=== PATIENT | male | born 2005 | race Caucasian/White ===

== ENCOUNTER 2025-08-16 15:19 | Emergency (ER) | payer SELFPAY ==
[2025-08-16 15:19] VITALS: BP 137/69; PULSE 104; RESP 16; TEMP 36.2; O2SAT 97; BMI 32.3
--- NOTE | 2025-08-16 15:53 | EX.ED.DYSGE1 ---
HPI History of Present Illness Chief Complaint: Neuro S/Sx Detail of Chief Complaint: Left side of face not working Informant: patient and spouse/S.O. Onset/Context/Timing Onset: Weeks (Significant other noted difference 1 week ago) Context: Sudden Onset Timing: Continuous Quality: Unable to move PERRL forehead, close eyes completely on the left and asymme Location: Left side Current Severity: Severe Maximum Severity: Severe Worsened by: Nothing Relieved by: Nothing Associated Symptoms Associated Symptoms: None Narrative Narrative: Patient is a 19-year-old male with no segment past medical history. Patient is in no distress. BMI is 32.3. /significant other noted that his smile was crooked on the left side. She has noted a difference since August 09. He is having difficulty closing his eyelids on the left and he has a significant asymmetric smile with difficulty swallowing/drinking liquids out of a glass. He has not been out camping or in the he recently. He denies any ear pain or lesions noted either in his ear. He denies sore throat. He denies neck pain or neck stiffness. He reports he has never had this happen to him before. Prior similar symptoms: No Recent Illness/Hospitalization: No PFSH PFSH Medical History no medical history no medical history Home Medications ?Medication ?Instructions ?Recorded ?Last Taken ?Type acyclovir 800 mg tablet 800 mg PO 5X/DAY #35 TABLETS 08/16/25 Unknown Rx erythromycin 5 mg/gram (0.5 %) eye 1 applic LEFT EYE .Q HS #3.5 grams 08/16/25 Unknown Rx ointment prednisone 50 mg tablet 50 mg PO DAILY #7 tabs 08/16/25 Unknown Rx Allergy/AdvReac Type Severity Reaction Status Date / Time No Known Allergies Allergy Verified 08/16/25 15:20 Surgical History no surgical history no surgical history Social History (Updated 08/16/25 @ 15:[address] Ollie Walker MD) household members: significant other and children ROS ROS ED Constitutional Constitutional ED: Denies chills, fever(s), subjective, sweats or weight loss Eyes Eyes: Denies blurry vision, change in vision or diplopia ENT ENT ED: Denies ear pain, rhinorrhea or sore throat Cardiovascular Cardiovascular: Denies chest pain or palpitations Respiratory/Chest Respiratory/Chest: Denies cough, dyspnea or dyspnea on exertion Gastrointestinal Gastrointestinal: Denies nausea or vomiting Neurologic Neurologic: Denies headache(s), paresthesias or weakness Psychiatric Psychiatric: Denies anxiety or depression Hematologic/Lymphatic Hematologic/Lymphatic: Reports systems reviewed and no addt'l complaints, except as documented EXAM Physical Exam Const Vital Signs: 08/16/25 15:19 Temperature 97.2 F L Temperature Source Temporal Pulse Rate 104 H Respiratory Rate 16 Blood Pressure 137/69 H Blood Pressure Mean 91 Pulse Ox 97 Oxygen Delivery Method Room Air Positive well nourished and well developed General Appearance ED: well developed and NAD; Negative for pallor HEENT Reports TM's clear and moist mucous membranes HEENT Narrative: Patient has asymmetric smile. He is unable to fill his forehead on the left and difficulty closing his eye Lids on the left completely. There are no lesions noted on the ear or external auditory canal. There is no discomfort pulling on the auricle or portion of the tragus. 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 There are no lesions noted on his ear or 2nd or 3rd distribution of the trigeminal nerve to suggest Pallavi Mckeon syndrome. With no history of camping or being out in the he there is no concern for Lyme's disease. Patient will receive prescription for prednisone and acyclovir as well as erythromycin ointment. He was informed that he has a 92 95% chance is may completely recover there is a 2 to 5% chance there is only partial recovery and only at 2 to 3% at this will be permanent. History & Record Review Discussion w/independent historian: Significant other Discharge Plan Triage Chief Complaint: Neuro S/Sx ED Provider: Ollie Walker Dx/Rx/DC Orders Clinical Impression: Left-sided Mcconnell's palsy, Elevated blood-pressure reading without diagnosis of hypertension, Adult BMI 32.0-32.9 kg/sq m Instructions: ED Mcconnell's Palsy, ED Hypertension, To Be Confirmed Prescriptions: New erythromycin 5 mg/gram (0.5 %) ointment 1 applic LEFT EYE .Q HS Qty: 3.5 2RF Rx Instructions: Then tape your eyelid shut acyclovir 800 mg tablet 800 mg PO 5X/DAY Qty: 35 0RF prednisone 50 mg tablet 50 mg PO DAILY Qty: 7 0RF Primary Care Provider: Care Physician,No Primary Referrals: Care Physician,No Primary [Primary Care Provider, Medical] [facility] [Non-Staff, Medical] - 1 Week Activity Restrictions/Additional Instructions: 1. Take medication as prescribed and apply ointment as prescribed. 2. You need to follow-up at the [facility] in 1 to 2 weeks to have your blood pressure reassessed. Your pressure is elevated for a 19-year-old. Print Language: Moroccan Disposition Disposition: Home, Self Care
--- OUTSIDE RECORDS SUMMARY | 2025-08-16 16:05 | XMS RPT_ITS | CCD ---
Author Organization [facility] CliniSyil Care Team Providers Care Mosquito Sprayer Name Role Phone Jessica Mack CNP Primary Care Provider JESSICA MACK Primary Care Unavailable CANDIE CEJA Referring Unavailable JESSICA MACK Primary Care Unavailable Earl GARZA, Dustin Attending Unavailable Winter ÁLVAREZ, Stan Hooks Attending Unavailable Earl GARZA, Dustin Attending Unavailable Earl GARZA, Dustin Attending Unavailable LISBETH MAURER MD Attending Unavailable LISBETH MAURER MD Primary Care Unavailable LISBETH MAURER MD Admitting Unavailable MILO SANTIAGO DO Attending Unavailable CSEMILO TSE DO Primary Care Unavailable CSEMILO TSE DO Admitting Unavailable KARYN GAN DO Admitting Unavailable DIDKARYN DOBBINS DO Attending Unavailable KARYN GAN DO Primary Care Unavailable JOSE HUI Attending Unavailable JOSE HUI Primary Care Unavailable JOSE HUI Admitting Unavailable Medications Current Medications Medication Drug Class(es) Dates Sig (Normalized) Sig (Original) cetirizine hydrochloride 10 mg oral tablet (5 sources) Histamine-1 Receptor Antagonist Start: 11-21-2020 take 1 tablet by mouth once daily cetirizine (ZYRTEC) 10 mg tablet Take 1 tablet by mouth once daily. 11/21/2020 Active fluticasone propionate 0.05 mg/actuat metered dose nasal spray (5 sources) Corticosteroid Start: 11-27-2020 take 1 spray(s) nasal route once daily at bedtime fluticasone (FLONASE) 50 mcg/actuation nasal spray Use 1 [place] in each nostril daily at bedtime. 1 Bottle 11/27/2020 Active hydrOXYzine hydrochloride 25 mg oral tablet (5 sources) Antihistamine Start: 11-21-2020 take 1 tablet by mouth once daily at bedtime hydrOXYzine HCl (ATARAX) 25 mg tablet Take 1 tablet by mouth daily at bedtime. 11/21/2020 Active melatonin 5 mg oral capsule (5 sources) Start: 11-21-2020 take 1 capsule by mouth once daily at bedtime Melatonin 5 mg cap Take 1 capsule by mouth daily at bedtime. 11/21/2020 Active naproxen 500 mg oral tablet (2 sources) Nonsteroidal Anti-inflammatory Drug Start: 01-18-2024 End: 01-25-2024 take 1 tablet by mouth every twelve hours as needed naproxen (NAPROSYN) 500 mg tablet Take 1 tablet by mouth two times a day as needed (for pain/inflammation ) for up to 7 days. Take with food. 14 tablet 0 01/18/2024 01/25/2024 Active topiramate 25 mg oral tablet (3 sources) Start: 11-27-2020 take 1 tablet by mouth once daily topiramate (TOPAMAX) 25 mg tablet Take 1 tablet by mouth once daily. 30 tablet 11/27/2020 Active Problems Problem Classification Problem Date Documented Da te Episodic/Chronic Other lower respiratory disease (1 source) Other specified respiratory disorders; Translations: [Other specified respiratory disorders] Onset: 07-10-2024 Episodic Other non-traumatic joint disorders (3 sources) Pain in right shoulder; Translations: [Pain in joint, shoulder region] Onset: 01-18-2024 01-18-2024 Episodic Results Test Name Value Interpretation Reference Range Facil ity ED MED ADMINISTRATION DETAIL on 02-18-2025 ED MED ADMINISTRATION DETAIL Detention Worker Medication Administration Record [address] [address] [id number] 02/18/2025 Patient: ANTELMO HE Sex: Male : 2005 Age: 19y MEASUREMENTS: Wt: 113.4 kg, Ht/Brenton: 74.0 in, BMI: 32.10 ALLERGIES: No known drug allergies Medication Ordered Medication Administration Date/Time Kenalog IM 40 mg 12:17 02/18 Kenalog IM 40 mg given. Given in the left gluteus Given (NOW x1) ganga. Allergies verified and confirmed 5 rights. Information 12:17 02/18/2025 reviewed with patient including reason for taking this medication, Joseline Amanda R.N. signs of allergic reaction and precautions. Verbalizes Scanned understanding. - 12:19 Joseline Amanda R.N. 1 of 1 Normal [facility] ED NURSES CLINICAL NOTEon ED NURSES CLINICAL NOTE Nurse Narrative Nurse Clinical Narrative [facility] [address] [place] [address] [id number] 02/18/2025 12:02:00 Patient: ANTELMO HE Sex: Male : 2005 Age: 19y Disposition: Discharge Disposition Decision Time: 12:28 02/18/2025 Departure Time: 12:43 02/18/2025 TRIAGE Arrived by private vehicle. Historian: (patient). Primary physician (None). Triage time: 12:01 02/18/2025. Acuity: LEVEL 4. Chief Complaint: SKIN RASH and . poison iron. Location - right groin, right thigh, left forearm and left wrist. This started yesterday. It is described as itchy. SEPSIS SCREEN: NEGATIVE. SIRS criteria negative. No possible sources of infection. -- 12:02/18/25 EDT Kristie Merchant R.N. 12:02/18/25. BP: 127/58 MAP: 81. HR: 80. RR: 14. O2 saturation: 97% Temperature: 97.5 F. Pain level now 0/10. -- 12:02/18/25 AGUSTINAT Kristie Merchant R.N. Measurements: 12:02/18/25 Wt: 113.4 kg, Ht/Brenton: 74.0 in, BMI: 32.10 -- 12:02/18/25 EDT Kristie Merchant R.N. Medications: no known home medications -- 12:02/18/25 AGUSTINAT Kristie Merchant R.N. 12:02/18/25. Preferred Pharmacy: ([facility]). -- 12:02/18/25 EDT Kritsie Merchant R.N. 1 of 3 Nurse Narrative Allergies: no known drug allergies -- 12:02/18/25 AGUSTINAT Kristie Merchant R.N. Home Medications/Allergy Information Source: patient -- 12:02/18/25 EDT Kristie Merchant R.N. Problems: Asthma -- 12:02/18/25 AGUSTINAT Kristie Merchant R.N. history of meningitis -- 12:02/18/25 AGUSTINAT Kristie Merchant R.N. Surgeries: Hernia Repair -- 12:02/18/25 EDT Kristie Merchant R.N. History 12:02/18/25. PAST MEDICAL HX: Immunizations: up-to-date. SOCIAL HX: Occasional vaping. No alcohol use or drug use. The patient has not traveled outside the [place] Infectious disease exposure: No infectious disease exposure. ABUSE ASSESSMENT: The patient answered yes to the question(s) Do you feel safe in your home? and no to the question(s) Are you afraid to go home?. Abuse denied. No suspicion of abuse. SELF HARM ASSESSMENT: Self harm assessment was performed. The patient answered no to the question(s) Have you recently felt down, depressed, or hopeless? and Do you have thoughts of harming or killing yourself?. FALL RISK ASSESSMENT: Fall risk assessment completed. No risk factors identified. -- 12:02/18/25 EDT Kristie Merchant R.N. Interventions 2 of 3 Nurse Narrative 12:02/18/25. Advanced care plan discussed with patient (Full Code). -- 12:02/18/25 EDT Kristie Merchant R.N. PHYSICAL ASSESSMENT 12:14 02/18/25. ( Presents to ER for c/o pruritus and rash since yesterday.). GENERAL / NEURO / PSYCH: Alert. The patient does not appear to be in acute distress. Oriented X 4. HEENT: Pupils equal, round and reactive to light. Mucous membranes are pink. RESPIRATORY: Respirations not labored. Breath sounds within normal limits. CVS: Capillary refill less than 2 seconds. Pulses within normal limits. GI / : Abdomen nontender. SKIN: Skin is warm and dry. Raised skin rash in the left groin, on the right arm, left arm and left thigh. -- 12:24 02/18/25 EDT Joseline Amanda R.N. NURSING PROGRESS NOTES 12:02/18/25. Patient identifiers checked. Call light placed in reach. Side rails up x 1. Bed placed in lowest position. Brakes of bed on. -- 12:20 02/18/25 EDT Joseline Amanda R.N. 12:17 02/18/25. Kenalog IM 40 mg given. Given in the left gluteus ganga. Allergies verified and confirmed 5 rights. Information reviewed with patient including reason for taking this medication, signs of allergic reaction and precautions. Verbalizes understanding. -- 12:19 02/18/25 EDT Joseline Amanda R.N. 12:28 02/18/25. ( Patient monitored after Kenalog injection and will discharge after). -- 12:49 02/18/25 EDT Joseline Amanda R.N. DISPOSITION / DISCHARGE 12:42 02/18/25. BP: 123/64 MAP: 84. HR: 63. RR: 16. O2 saturation: 99% Temperature: 98.1 F. Pain level now 0/10. -- 12:42 02/18/25 EDT Joseline Amanda R.N. 12:43 02/18/25. Discharge instructions provided and reviewed with the patient. Patient verbalized understanding. Written instructions provided in Greek. The patient was discharged by the physician. The patient was discharged home. The patient left ambulatory and via private vehicle. Patient driving. -- 12:45 02/18/25 EDT Joseline Amanda R.N. Departure time: 12:43 02/18/2025. -- 12:46 02/18/25 EDT Joseline Amanda R.N. 12:43 02/18/25. Condition at departure: improved and stable. -- 12:50 02/18/25 EDT Joseline Amanda R.N. (Electronically signed by Joseline Amanda R.N. 02/18/25 12:50:30 EDT) Generated by [facility] 3 of 3 Normal [facility] ED ORDER SHEET (CPOE ONLY)on 02-18-2025 ED ORDER SHEET (CPOE ONLY) Order Sheet Order Sheet [facility] [address] [facility] [place] [address] [id number] 02/18/2025 Patient: ANTELMO HE Sex: Male : 2005 Age: 19y MEASUREMENTS: Wt: 113.4 kg, Ht/Brenton: 74.0 in, BMI: 32.10 ALLERGIES: No known drug allergies MEDICATION/IV/DRIP/FL UID ORDERS Order Description Priority Entered Acknowledged Completed Kenalog IM40 mg (NOW x1) 12:12 02/18/2025 12:19 Jose Hui M.D. 02/18/2025 Joseline Amanda R.N. LAB ORDERS Order Description Priority Entered Acknowledged Collected Completed DIAGNOSTIC STUDY ORDERS Order Description Priority Entered Acknowledged Completed STAFF ORDERS Order Description Priority Entered Acknowledged Collected Completed [Electronically signed by Jose Hui M.D. (02/18/2025 12:44 EDT)] 1 of 1 Normal [facility] ED PHYSICIAN CLINICAL REPORT on 02-18-2025 ED PHYSICIAN CLINICAL REPORT Narrative Physician Clinical [address] [address] [id number] 02/18/2025 12:02:00 Patient: ANTELMO HE Sex: Male : 2005 Age: 19y Measurements Wt: 113.4 kg, Ht/Brenton: 74.0 in, BMI: 32.10 Initial Vital Sign Measured Time BP MAP HR RR O2Sat ETCO2 Temp Pain GCS RTS 12:06 02/18/2025 127/58 81 80 14 97% 97.5 F 0 Time Seen: 12:07 02/18/2025. Arrived- By private vehicle. Historian- patient. HISTORY OF PRESENT ILLNESS Chief Complaint: SKIN RASH. This started about 2 years days ago. It is described as itchy. It has been located on the trunk, right lower extremity and left lower extremity. The patient was recently exposed to poison iron. 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 States every summer he gets poison iron and couple of days ago started with patches of a itchy rash to his arms legs and groin area. No other complaints.). Similar symptoms previously. Patient has had similar symptoms several times. REVIEW OF SYSTEMS All other systems reviewed and are negative. PAST HISTORY See nurses notes. 1 of 3 Narrative Asthma history of meningitis Surgeries: Hernia Repair Medications: no known home medications Allergies: no known drug allergies Home Medications/Allergy Information Source: patient - Kristie Merchant R.N., 02/18/2025 12:04 EDT ADDITIONAL NOTES The nursing notes have been reviewed. PHYSICAL EXAM Vital Signs: Have been reviewed. Appearance: Alert. Oriented X3. No acute distress. Eyes: No conjunctival findings. Respiratory: No respiratory distress. Skin: Skin warm and dry. Normal skin color. Rash present on the trunk. Rash present on the right lower extremity. The rash is vesicular. Rash present on the left upper extremity. (Patches a fine vesicular rash as mentioned consistent with contact dermatitis such as poison iron). Neuro: Oriented X 3. PROGRESS AND PROCEDURES MEDICAL DECISION MAKING: The diagnosis appears to be straight forward. (exam consistent with contact dermatitis secondary to poison iron.). Disposition: Condition: good. Discharged in good condition. Discharge decision based on the following: patient's condition is stable; patient's exam is stable; clinical impression is consistent with outpatient treatment. 2 of 3 Narrative CLINICAL IMPRESSION Moderate poison iron DISCHARGE INSTRUCTIONS Off work today. Prescription Medications: Triamcinolone cream 0.5%. Follow-up: Follow up with your doctor in about three days if not better. (Electronically signed by Jose Hui M.D. 02/18/25 12:44:04 EDT) Generated by [facility] 3 of 3 [facility] ED SUPER BILLon 02-18-[address] [place] [address] [id number] 02/18/2025 Patient: ANTELMO HE Sex: Male : 2005 Age: 19y Item Facility Professional Category Description Code Code Quantity Fee Total Nurse/E/M EMERGENCY 347457 1 $0.00 $0.00 DEPARTMENT VISIT HIGH/URGENT SEVERITY (20181-76) Nurse/IV/IM/Infusions IM/SQ (97586) 049491 1 $0.00 $0.00 Grand Total $0.00 Providers Jose Hui M.D. Chief Complaint SKIN RASH. Principal Diagnosis Moderate poison iron 1 of 2 [facility] ICD-10 Codes L25.5: Unspecified contact dermatitis due to plants, except food 2 of 2 [facility] ED VISIT SUMMARYon 06-30-202 5 ED VISIT SUMMARY Visit Overview Visit Overview [facility] [address] [place] [address] [id number] 02/18/2025 Patient: ANTELMO HE Sex: Male : 2005 Age: 19y 02/18/2025 12:50 PM EDT ED Arrival:12:02 02/18/2025 EDT Status: Recent Travel:no Language:eng Adv Directive: Isolation Status: Ethnicity:N Fall Risk:no risk Infectious Disease Exposure:no Measurements:6'2 / 188.0 Self-Harm Status:risk Sepsis Screen:negative cm 250.0 lb / 113.4 kg Chief Complaint:SKIN RASH, (None), and (poison iron ) ALLERGIES No Known Drug Allergies HOME MEDICATIONS None PAST MEDICAL HISTORY / PROBLEMS Asthma history of meningitis Immunizations: up-to-date 1 of 3 Visit Overview See nurses notes PAST SURGICAL HISTORY Hernia Repair SOCIAL HISTORY Smoking status: Unknown Alcohol use: No Drug use: No ED COURSE MEDICATIONS GIVEN IN EMERGENCY DEPARTMENT 12:17 02/18/25 Kenalog IM 40 mg IV SITE INFORMATION INTAKE OUTPUT REASSESMENT (most recent) 12:14 02/18/25. ( Presents to ER for c/o pruritus and rash since yesterday.). GENERAL / NEURO / PSYCH: Alert. The patient does not appear to be in acute distress. Oriented X 4. HEENT: Pupils equal, round and reactive to light. Mucous membranes are pink. RESPIRATORY: Respirations not labored. Breath sounds within normal limits. CVS: Capillary refill less than 2 seconds. Pulses within normal limits. GI / : Abdomen nontender. SKIN: Skin is warm and dry. Raised skin rash in the left groin, on the right arm, left arm and left thigh. VITAL SIGNS First Vitals Last Vitals Temp 12:02/18/25 97.5 F Temp 12:02/18/25 98.1 F BP 12:02/18/25 127/58 BP 12:02/18/25 123/64 HR 12:02/18/25 80 HR 12:02/18/25 63 RR 12:02/18/25 14 RR 12:02/18/25 16 O2 Sat 12:02/18/25 97% O2 Sat 12:42 02/18/25 99% 2 of 3 Visit Overview First Vitals Last Vitals Pain 12:06 02/18/25 0 Pain 12:42 02/18/25 0 ETCO2 12:06 02/18/25 ETCO2 12:42 02/18/25 GCS 12:06 02/18/25 GCS 12:42 02/18/25 RTS 12:06 02/18/25 RTS 12:42 02/18/25 PROCEDURES NURSING INTERVENTIONS LABS / STUDIES CLINICAL IMPRESSION MODERATE POISON IRON 3 of 3 [facility] ED VITALS FLOW SHEETon 02-18 ED VITALS FLOW SHEET Vitals Vital Sign Flow Sheet [address] [address] [id number] 02/18/2025 Patient: ANTELMO HE Sex: Male : 2005 Age: 19y Measurements Wt: 113.4 kg, Ht/Brenton: 74.0 in, BMI: 32.10 Measured Time BP MAP HR RR O2Sat ETCO2 Temp Pain GCS RTS 12:42 02/18/2025 123/64 84 63 16 99% 98.1 F 0 12:06 02/18/2025 127/58 81 80 14 97% 97.5 F 0 1 of 1 [facility] ED MED ADMINISTRATION DETAIL on 07-12-2024 ED MED ADMINISTRATION DETAIL Detention Worker Medication Administration Record [address] [address] [id number] 07/12/2024 Patient: ANTELMO HE Sex: Male : 2005 Age: 18y MEASUREMENTS: Wt: 111.6 kg, Ht/Brenton: 74.0 in, BMI: 31.58 ALLERGIES: No known drug allergies Medication Ordered Medication Administration Date/Time 1 of 1 [facility] ED NURSES CLINICAL NOTEon ED NURSES CLINICAL NOTE Nurse Narrative Nurse Clinical Narrative [address] [address] [id number] 07/12/2024 Patient: ANTELMO HE Sex: Male : 2005 Age: 18y Disposition: Discharge Disposition Decision Time: 09:07 07/12/2024 Departure Time: 09:07 07/12/2024 TRIAGE Arrived by private vehicle. Historian: patient. Triage time: 08:30 07/12/2024. Acuity: LEVEL 3. Chief Complaint: CHILLS, CHEST PAIN, DYSPNEA, COUGH and NAUSEA. Alert. No acute distress. Onset. (2 weeks ago). ( diagnosed with flu on Tuesday. Pain with cough started yesterday). The patient has had a cough. SEPSIS SCREEN: NEGATIVE. SIRS criteria negative. No possible sources of infection. -- 08:48 07/12/24 CARRIE Luke R.N. 08:49 07/12/24. BP: 130/98 MAP: 109. HR: 75. RR: 18. O2 saturation: 95% on room air. Temperature: 98.1 F. Pain level now 7/10. Describes the pain as aching. -- 08:49 07/12/24 CARRIE Luke R.N. Measurements: 08:48 07/12/24 Wt: 111.6 kg, Ht/Brenton: 74.0 in, BMI: 31.58 -- 08:48 07/12/24 CARRIE Luke R.N. Medications: no known home medications -- 08:43 07/12/24 CARRIE Luke R.N. 1 of 3 Nurse Narrative Allergies: no known drug allergies -- 08:42 07/12/24 CARRIE Luke R.N. Problems: Asthma -- 08:44 07/12/24 CARRIE Luke R.N. ADDITIONAL SURGERIES: no known surgical history -- 08:43 07/12/24 CARRIE Luke R.N. History 08:30 07/12/24. SOCIAL HX: Heavy tobacco smoker. Regular vaping. No alcohol use or drug use. The patient has not traveled outside the [place] Infectious disease exposure: No infectious disease exposure. ABUSE ASSESSMENT: The patient answered yes to the question(s) Do you feel safe in your home? and no to the question(s) Are you afraid to go home?. SELF HARM ASSESSMENT: Self harm assessment was performed. The patient answered no to the question(s) Have you recently felt down, depressed, or hopeless? and Do you have thoughts of harming or killing yourself?. -- 08:48 07/12/24 CARRIE Luke R.N. 08:33 07/12/24. FALL RISK ASSESSMENT: Fall risk assessment completed. No risk factors identified. -- 08:48 07/12/24 CARRIE Luke R.N. Interventions 08:30 07/12/24. Identification band on patient. Advanced care plan discussed with patient. Patient does not have advanced directive. (Full Code). -- 08:48 07/12/24 CARRIE Luke R.N. PHYSICAL ASSESSMENT 2 of 3 Nurse Narrative 08:51 07/12/24. Ambulatory to room. ( complains of cough and chest pain s/p positive flu test on tuesday). GENERAL / NEURO / PSYCH: Alert. Oriented X 4. Appears in no acute distress. HEENT: Mucous membranes are pink. RESPIRATORY: Respirations not labored. Breath sounds within normal limits. CVS: Capillary refill less than 2 seconds. SKIN: Skin is warm and dry. -- 09:06 07/12/24 CARRIE Diggs R.N. DISPOSITION / DISCHARGE Departure time: 09:07/12/2024. Condition at departure: unchanged. No learning barriers present. Discharge instructions provided and reviewed with the patient. Patient verbalized understanding. Written instructions provided in Greek. The patient was discharged by the physician. The patient was discharged home. The patient left ambulatory and via private vehicle. Patient driving. -- 09:07 07/12/24 CARRIE Diggs R.N. (Electronically signed by Holden Diggs R.N. 07/12/24 09:58:17 EST) Generated by [facility] 3 of 3 Normal [facility] ED ORDER SHEET (CPOE ONLY)on 07-12-2024 ED ORDER SHEET (CPOE ONLY) Order Sheet Order Sheet [facility] [address] [facility] [place] [address] [id number] 07/12/2024 Patient: ANTELMO HE Sex: Male : 2005 Age: 18y MEASUREMENTS: Wt: 111.6 kg, Ht/Brenton: 74.0 in, BMI: 31.58 ALLERGIES: No known drug allergies MEDICATION/IV/DRIP/FL UID ORDERS Order Description Priority Entered Acknowledged Completed LAB ORDERS Order Description Priority Entered Acknowledged Collected Completed DIAGNOSTIC STUDY ORDERS Order Description Priority Entered Acknowledged Completed STAFF ORDERS Order Description Priority Entered Acknowledged Collected Completed 1 of 1 Normal [facility] ED PHYSICIAN CLINICAL REPORT on 07-12-2024 ED PHYSICIAN CLINICAL REPORT Narrative Physician Clinical Narrative [place] [id number] [facility] [place] [address] [id number] 07/12/2024 Patient: ANTELMO HE Sex: Male : 2005 Age: 18y Measurements Wt: 111.6 kg, Ht/Brenton: 74.0 in, BMI: 31.58 Initial Vital Sign Measured Time BP MAP HR RR O2Sat ETCO2 Temp Pain GCS RTS 08:46 07/12/2024 130/98 102 64 Time Seen: 08:38 07/12/2024. Arrived- By private vehicle. Historian- patient. HISTORY OF PRESENT ILLNESS Chief Complaint: COUGH. This started 4 days; Patient states he started having congestion and cough 4 days ago. It now is painful when he coughs in his chest. Occasionally he brings up some mucus. He has not had a fever. He is concerned because he has a 5-day-old baby at home. 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 He can not really tell me about the sputum. He states it does not really come up but he feels it loose in his throat. He has not had a fever. He denies any abdominal pain. He denies any nausea or vomiting. The illness is described as mild. No difficulty breathing, fever or chills. The patient has had chest discomfort, a sore throat, nasal congestion, sinus drainage and a nasal discharge. REVIEW OF SYSTEMS NEUROLOGICAL: No headache. EYES: No eye discomfort. GI: No nausea or vomiting. CVS: No pedal edema. ALLERGY/IMMUNO: No hay fever. 1 of 4 Narrative PAST HISTORY See nurses notes. Asthma Surgeries: no known surgical history Medications: no known home medications Allergies: no known drug allergies SOCIAL HISTORY Vapes. ADDITIONAL NOTES The nursing notes have been reviewed. PHYSICAL EXAM Vital Signs: Have been reviewed. Appearance: No acute distress. Eyes: Pupils equal, round and reactive to light. Eyes normal inspection. ENT: Nasal discharge present (clear rhinorrhea). Pharyngeal erythema (mild postnasal drip). Uvula midline. No tonsillar exudate, trismus or trouble handling secretions. Neck: Normal inspection. Neck supple. CVS: Normal heart rate. Heart sounds normal. Pulses normal. Respiratory: No respiratory distress. Painless inspiration. Breath sounds normal. No decreased breath sounds, rhonchi or wheezes. Skin: Skin warm. Normal skin color. No rash. Neuro: Oriented X 3. No motor deficit. No sensory deficit. Reflexes normal. 2 of 4 Narrative PROGRESS AND PROCEDURES COORDINATION OF CARE: (patient has typical upper respiratory symptoms most likely viral. He does not appear ill. He is not hypoxic. Has clear lungs. I feel he can be treated conservatively. I do not feel imaging is necessary at this time. I see no signs or symptoms of pneumonia. I feel this most likely is a viral origin and will be treated with symptomatic medications.). Disposition: Condition: good. Discharged in good condition. Discharge decision based on the following: patient's condition is stable; clinical impression is consistent with outpatient treatment. CLINICAL IMPRESSION Viral bronchitis. Antibiotics not prescribed / dispensed. Acute viral upper respiratory infection. Antibiotics not prescribed. DISCHARGE INSTRUCTIONS Take Tylenol (Acetaminophen) or Motrin (Ibuprofen) as needed for fever control. Take medication according to label instructions. No strenuous activity. Do not smoke. (or vaping). (Medications as directed. wash hands frequently.). Prescription Medications: Medications prescribed: Bromfed DM, albuterol inhaler. Bromfed DM 2 mg-30 mg-10 mg/5 mL oral syrup: Take 5 ml by mouth four times a day for 7 days, dispense 140 ml. Refills 0. Pharmacy: [facility] [id number] [place] [address]. albuterol sulfate HFA 90 mcg/actuation aerosol inhaler: Inhale 2 puff using inhaler every six hours as needed for 10 days, dispense 6.7 gram. Refills 0. Pharmacy: [facility] [id number] [place] [address]. Understanding of the discharge instructions verbalized by patient. 3 of 4 Narrative (Electronically signed by Lisbeth Maurer M.D. 07/12/24 09:00:37 EST) Generated by [facility] 4 of 4 [facility] ED SUPER BILLon 07-12-2024 ED SUPER BILL [address] [address] [id number] 07/12/2024 Patient: ANTELMO HE Sex: Male : 2005 Age: 18y Item Professional Category Description Facility Code Code Quantity Fee Total Nurse/E/M EMERGENCY 192495 1 $0.00 $0.00 DEPARTMENT VISIT LIMITED/MINOR PROB (36112) Grand Total $0.00 Providers Lisbeth Maurer M.D. Chief Complaint COUGH. Principal Diagnosis Viral bronchitis. Antibiotics not prescribed / dispensed. Acute viral upper respiratory infection. Antibiotics not prescribed. ICD-10 Codes 1 of 2 [facility] J20.8: Acute bronchitis due to other specified organisms J06.9: Acute upper respiratory infection, unspecified 2 of 2 [facility] ED VISIT SUMMARYon ED VISIT SUMMARY Visit Overview Visit Overview [address] [address] [id number] 07/12/2024 Patient: ANTELMO HE Sex: Male : 2005 Age: 18y 07/12/2024 09:58 AM EST ED Arrival:08:36 07/12/2024 EST Status: Recent Travel:no Language:eng Adv Directive:No Isolation Status: Ethnicity:N Fall Risk:no risk Infectious Disease Exposure:no Measurements:6'2 / 188.0 Self-Harm Status:risk Sepsis Screen:negative cm 246.0 lb / 111.6 kg Chief Complaint:CHEST PAIN, CHILLS, COUGH, DYSPNEA, NAUSEA, (2 weeks ago), and (diagnosed with flu on Tuesday. Pain with cough started yesterday) ALLERGIES No Known Drug Allergies HOME MEDICATIONS None PAST MEDICAL HISTORY / PROBLEMS 1 of 3 Visit Overview Asthma See nurses notes PAST SURGICAL HISTORY No Surgeries SOCIAL HISTORY Smoking status: Yes Alcohol use: No Drug use: No ED COURSE MEDICATIONS GIVEN IN EMERGENCY DEPARTMENT IV SITE INFORMATION INTAKE OUTPUT REASSESMENT (most recent) 08:51 07/12/24. Ambulatory to room. ( complains of cough and chest pain s/p positive flu test on tuesday). GENERAL / NEURO / PSYCH: Alert. Oriented X 4. Appears in no acute distress. HEENT: Mucous membranes are pink. RESPIRATORY: Respirations not labored. Breath sounds within normal limits. CVS: Capillary refill less than 2 seconds. SKIN: Skin is warm and dry. VITAL SIGNS First Vitals Last Vitals Temp 08:46 07/12/24 Temp 09:01 07/12/24 BP 08:46 07/12/24 130/98 BP 09:01 07/12/24 125/73 HR 08:46 07/12/24 64 HR 09:01 07/12/24 71 RR 08:46 07/12/24 RR 09:01 07/12/24 O2 Sat 08:46 07/12/24 O2 Sat 09:01 07/12/24 Pain 08:46 07/12/24 Pain 09:01 07/12/24 ETCO2 08:46 07/12/24 ETCO2 09:01 07/12/24 2 of 3 Visit Overview First Vitals Last Vitals GCS 08:46 07/12/24 GCS 09:01 07/12/24 RTS 08:46 07/12/24 RTS 09:01 07/12/24 PROCEDURES NURSING INTERVENTIONS LABS / STUDIES CLINICAL IMPRESSION ACUTE VIRAL UPPER RESPIRATORY INFECTION. ANTIBIOTICS NOT PRESCRIBED VIRAL BRONCHITIS. ANTIBIOTICS NOT PRESCRIBED / DISPENSED 3 of 3 Normal [facility] ED VITALS FLOW SHEETon 07-12 ED VITALS FLOW SHEET Vitals Vital Sign Flow Sheet [address] [place] [address] [id number] 07/12/2024 Patient: ANTELMO HE Sex: Male : 2005 Age: 18y Measurements Wt: 111.6 kg, Ht/Brenton: 74.0 in, BMI: 31.58 Measured Time BP MAP HR RR O2Sat ETCO2 Temp Pain GCS RTS 09:01 07/12/2024 125/73 91 71 08:59 07/12/2024 71 97% 08:54 07/12/2024 66 97% 08:49 07/12/2024 72 96% 08:49 07/12/2024 130/98 109 75 18 95% RA 98.1 F 7 08:46 07/12/2024 130/98 102 64 1 of 1 Normal [facility] Office Visit Reporton 2023 Office Visit Report [facility] [address] [place] [address] OFFICE VISIT Date of Service: 07/10/24 MR#: [id number] Acct: [id number] Patient: ANTELMO HE Rep #: [id number] : 2005 Provider: GREG Haro Age/Sex: 18/M Location: [facility] Status: Signed Intake Vital Signs 01/11/24 08:09 07/10/24 10:45 Height 1.88 m 1.88 m Weight: 101.151 kg 111.584 kg BMI 28.6 31.6 BP 123/78 133/89 H Blood Pressure Location Lt brachial Lt brachial Position Sitting Sitting Respiration 12 Pulse 66 94 Pulse Source NIBP Monitor Temp 98.7 F 98.3 F Temp Source Temporal Temporal Pulse Oximetry (%) 97 Intake Visit Reasons: Sore throat Chief Complaint: cough Allergies No Known Allergies Allergy (Unverified 07/10/24 10:46) HPI HPI Chief Complaint: cough Details: ANTELMO HE, is a 18 M who presents to the office today for cough. Pt has had cough about 2 weeks. He has also had sore throat and diarrhea about 2 days. No fever. No SOB. He was exposed to several sick friends one of which has rsv. He is concerned as he has an infant at home. ROS Const Constitutional: No chills, fatigue or fever(s) ENT ENT: Positive for nasal congestion and sore throat; No ear or mastoid pain Resp Respiratory: Positive for cough; No shortness of breath or wheezing Gastro GI: Positive for diarrhea; No nausea/dyspepsia or vomiting Endo Endocrine: No fatigue Aller/Imm Allergy/Immunologic: No wheezing Exam Const General: cooperative, healthy appearing, comfortable, no acute distress, well developed and well groomed Nutritional Appearance: average body habitus and well nourished Orientation: alert, awake and oriented x3 HENMT Head: normocephalic and atraumatic Ears: hearing grossly normal bilaterally, external ears normal and TM's normal bilaterally Nose: external nose normal and nares normal Throat: abnormal tonsil (2+ no exudates) Resp Effort Inspection: normal respiratory effort, able to speak in complete sentences, symmetric chest movement and cough Auscultation: Bilateral: Clear to Auscultation Cardio Rate: regular rate Rhythm: regular rhythm Heart Sounds: no murmurs Results POC RAPID RSV POC RAPID RSV Negative Last Edit by Nanette Daniel on 07/10/24 11:03 POC JOSHUA CoV-2 PCR POC JOSHUA CoV-2 PCR Not Detected Last Edit by Nanette Daniel on 07/10/24 11:04 POC FLU A B Office Flu A B Pos FLU A Neg FLU B Last Edit by Nanette Daniel on 07/10/24 11:04 Coding Level of Care Code Off vis,est,level 2 Diagnoses Sore throat J02.9 Influenza A J10.1 Assessment and Plan Assessment and Plan (1) Sore throat: (2) Influenza A: Status: Acute Plan: rapid test for flu a is positive. flu b, covid, and rsv are negative. at this time supportive measures only - hydrate, rest, motrin prn, mucinex dm prn. if no improvement 1 week follow up for re-eval. if worsening go to the ER no chronic medical issues/medication use Orders: Orders POC FLU A B Today J98.8 - Other specified respiratory disorders POC Rapid JOSHUA Cov-2 PCR Today J98.8 - Other specified respiratory disorders POC Rapid RSV ([place]) Today J98.8 - Other specified respiratory disorders 07/10/24 1106 Date Dustin Ignacio Signature: Date (if applicable) CC: Normal [facility] HAND LT MIN [address] [facility] 2023 HAND LT MIN 3 VIEWS [place] [id number] Patient: ANTELMO HE. Phone#: : 2005 Age: 18 Gender: M Pt. Type: ER Account: [id number] Location: [facility] Ordering: KARYN GAN Exam Date: 05/02/2024/0:48 Family Phys: Charge Code: [id number] Physician: Emmet Order #: [id number] Dose#: PROCEDURE: X-RAY HAND LT COMPLETE 3 VIEWS COMPARISON: None. INDICATIONS: TRAUMA. FINDINGS: BONES: Normal. No significant arthropathy or acute abnormality. SOFT TISSUES: Negative. No visible soft tissue swelling. EFFUSION: None visible. OTHER: Negative. CONCLUSION: No acute disease. Dictated by: Di Bernabe MD on 05/02/2024 at 10:12 Approved by: Di Bernabe MD on 05/02/2024 at 10:[address] [facility] 02-09-2024 [facility] Telephone (RGWSTR) ANTELMO HE ([id number]) 5 M Date Time Provider Department 02/09/24 SANDHYA MORILLO [facility] During your visit today, we recorded the following information about you: Pedrito Feliciano 02/09/2024 3:17 PM Signed Patient's spouse called to request disc and report of XR Shoulder RT from 01/18/24. Please notify spouse when ready for pickup. 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 - topiramate (TOPAMAX) 25 mg tablet Take 1 tablet by mouth once daily. - cetirizine (ZYRTEC) 10 mg tablet Take 1 tablet by mouth once daily. - hydrOXYzine HCl (ATARAX) 25 mg tablet Take 1 tablet by mouth daily at bedtime. - Melatonin 5 mg cap Take 1 capsule by mouth daily at bedtime. Problem List As Of Date: 02/09/2024 (None) Encounter Status:Closed by PEDRITO FELICIANO [facility] Tele[facility] ([facility]) ANTELMO HE ([id number]) 5 M Date Time Provider Department 01/19/24 CANDIE CEJA [facility] During your visit today, we recorded the following information about you: Jolanta Rosa RN 01/19/2024 8:24 AM Signed Patient calls and states that provider had wrote a letter yesterday to excuse patient from work yesterday. Patient states that he did not work yesterday. Patient asking if provider can write him a letter excusing him from work today? Please review and advise, BENJI Fernández Dominique, APRN.[facility] 01/19/2024 8:35 AM Signed Please call and let patient know that [facility]. If patient needs any more time off work you have to follow-up with primary care. Monserrat Riggs MA 01/19/2024 8:59 AM Signed Patient notified, faxed to work [facility] [phone]. Monserrat Riggs MA Allergies As of Date: 01/19/2024 (No Known Allergies) Date Reviewed: 01/18/2024 Reviewed by: Silvana Collier MA - Fully Assessed Reason for Visit: Letter [264] Prescriptions as of 01/19/2024 - naproxen (NAPROSYN) 500 mg tablet Take 1 tablet by mouth two times a day as needed (for pain/inflammation) for up to 7 days. Take with food. - fluticasone (FLONASE) 50 mcg/actuation nasal spray Use 1 [place] in each nostril daily at bedtime. - topiramate (TOPAMAX) 25 mg tablet Take 1 tablet by mouth once daily. - cetirizine (ZYRTEC) 10 mg tablet Take 1 tablet by mouth once daily. - hydrOXYzine HCl (ATARAX) 25 mg tablet Take 1 tablet by mouth daily at bedtime. - Melatonin 5 mg cap Take 1 capsule by mouth daily at bedtime. Problem List As Of Date: 01/19/2024 (None) Letter Text Encounter Status:Closed by MONSERRAT RIGGS on 01/19/24 [facility] ANTELMO HE ([id number]) 5 M Date Time Provider Department 01/19/24 CANDIE CEJA [facility] During your visit today, we recorded the following information about you: Maisha Hair LPN 01/19/2024 8:52 AM Signed Pt called to get a new letter. He was seen yesterday and a letter was given but pt will return to work tomorrow 01-20-24. He was to be written off today to given meds time to kick in. Please fax letter with pt being off today and return to work 01-20-24. Please fax letter to employer [employer] [phone]. Please advise pt when this has been done or if there is a problem. Maisha Hair LPN Allergies As of Date: 01/19/2024 (No Known Allergies) Date Reviewed: 01/18/2024 Reviewed by: Silvana Collier MA - Fully Assessed Reason for Visit: Letter [264] Prescriptions as of 02/13/2024 - fluticasone (FLONASE) 50 mcg/actuation nasal spray Use 1 [place] in each nostril daily at bedtime. - topiramate (TOPAMAX) 25 mg tablet Take 1 tablet by mouth once daily. - cetirizine (ZYRTEC) 10 mg tablet Take 1 tablet by mouth once daily. - hydrOXYzine HCl (ATARAX) 25 mg tablet Take 1 tablet by mouth daily at bedtime. - Melatonin 5 mg cap Take 1 capsule by mouth daily at bedtime. Problem List As Of Date: 01/19/2024 (None) Encounter Status:Closed by MAISHA HAIR on 02/13/24 [facility] CNOVon 01-18-2024 [facility] Office Visit (WSTR ) ANTELMO HE ([id number]) 5 M Date Time Provider Department 01/18/24 12:30 PM CANDIE CEJA WSTR During your visit today, we recorded the following information about you: Temperature Pulse Respiration Blood pressure 97.2 degrees 78/minute 16/minute 122/72 Weight 101 kg Candie Ceja PA-C 01/18/2024 1:13 PM Signed This note was created using [employer]. Subjective Antelmo He is a 18 year old male. HPI Patient presents with a chief complaint of right shoulder pain. He was trying to get a tire off of his car about 2 hours ago when he felt a pop in the back of his shoulder. Since then it has been painful to move the shoulder. He states he had been told he may have torn a muscle in his upper back about a year ago. It really was not bothering him much since then. He denies numbness or tingling. Sometimes the pain radiates to his mid bicep area. No other complaints. Review of Systems Musculoskeletal: Right shoulder All other systems reviewed and are negative. PAST MEDICAL HISTORY Diagnosis Date Meningitis 8 yo Current Outpatient Medications Medication Sig Dispense Refill naproxen (NAPROSYN) 500 mg tablet Take 1 tablet by mouth two times a day as needed (for pain/inflammation) for up to 7 days. Take with food. 14 tablet 0 fluticasone (FLONASE) 50 mcg/actuation nasal spray Use 1 [place] in each nostril daily at bedtime. (Patient not taking: Reported on 01/18/2024) 1 Bottle 0 topiramate (TOPAMAX) 25 mg tablet Take 1 tablet by mouth once daily. (Patient not taking: Reported on 01/18/2024) 30 tablet 0 cetirizine (ZYRTEC) 10 mg tablet Take 1 tablet by mouth once daily. (Patient not taking: Reported on 01/18/2024) hydrOXYzine HCl (ATARAX) 25 mg tablet Take 1 tablet by mouth daily at bedtime. (Patient not taking: Reported on 01/18/2024) Melatonin 5 mg cap Take 1 capsule by mouth daily at bedtime. (Patient not taking: Reported on 01/18/2024) No current facility-administered medications for this visit. No past surgical history on file. No family history on file. Objective BP 122/72 Pulse 78 Temp 36.2 ?C (97.2 ?F) Resp 16 Wt 101 kg (222 lb 10.6 oz) SpO2 98% Physical Exam Vitals reviewed. Constitutional: Appearance: Normal appearance. HENT: Head: Normocephalic and atraumatic. Musculoskeletal: Comments: Patient has tenderness palpation over the scapula of the right shoulder. Limited range of motion of the shoulder due to pain. No tenderness over the glenohumeral joint. No tenderness over the clavicle. Normal strength in the arm. Radial pulse 2+. Normal hand grasp strength. Skin: General: Skin is warm and dry. Neurological: General: No focal deficit present. Mental Status: He is alert and oriented to person, place, and time. Assessment and Plan ASSESSMENT/PLAN: 1. Acute pain of right shoulder - ICD9: 719.41, ICD10: M25.511 Likely strain. X-rays are unremarkable. Given naproxen for pain. Discussed rest, ice, if not improving in the next 1 to 2 weeks to follow-up with orthopedics. Work note provided. Patient agreeable with plan. - XR SHOULDER GENERAL 3V OR MORE AP/TRUE AP/OTHER RIGHT - CONSULT TO ORTHOPAEDICS Candie Ceja PA-C Allergies As of Date: 01/18/2024 (No Known Allergies) Date Reviewed: 01/18/2024 Reviewed by: Silvana Collier MA - Fully Assessed Reason for Visit: Shoulder Injury [1216] Cmt: right shoulder pop x 2 hours, while working on car Primary Visit Diagnosis:Acute pain of right shoulder [M25.511] Order(s):XR SHOULDER GENERAL 3V OR MORE AP/TRUE AP/OTHER RIGHT [0864632] Order #: [id number] FUTURE CONSULT TO ORTHOPAEDICS [9026] Order #: [id number]: 1 FUTURE naproxen (NAPROSYN) 500 mg tabletTake 1 tablet by mouth two times a day as needed (for pain/inflammation) for up to 7 days. Take with food.Disp: 14 tabletRfl: 0 Prescriptions as of 01/18/2024 - naproxen (NAPROSYN) 500 mg tablet Take 1 tablet by mouth two times a day as needed (for pain/inflammation) for up to 7 days. Take with food. - fluticasone (FLONASE) 50 mcg/actuation nasal spray Use 1 [place] in each nostril daily at bedtime. - topiramate (TOPAMAX) 25 mg tablet Take 1 tablet by mouth once daily. - cetirizine (ZYRTEC) 10 mg tablet Take 1 tablet by mouth once daily. - hydrOXYzine HCl (ATARAX) 25 mg tablet Take 1 tablet by mouth daily at bedtime. - Melatonin 5 mg cap Take 1 capsule by mouth daily at bedtime. Problem List As Of Date: 01/18/2024 (None) Prescriptions ordered this encounter Disp Refills Start End NAPROXEN 500 MG TABLET 14 t* 0 01/18/2024 01/25/2024 Route: ORAL Sig: Take 1 tablet by mouth two times a day as needed (for pain/inflammation) for up to 7 days. Take with food. Letter Text Encounter Status:Closed by CANDIE CEJA on 01/18/24 Normal [facility] XR SHLDR >/=3V AP/DIANA AP/OTH R RTon 01-18-2024 XR SHLDR >/=3V AP/DIANA AP/OTHR RT * * *Final Report* * * DATE OF EXAM: Jan 18 2024 12:38PM WOX 5253 - XR SHLDR >/=3V AP/DIANA AP/OTHR RT / PROCEDURE REASON: Acute pain of right shoulder * * * * Physician Interpretation * * * * TECHNIQUE: XR SHLDR >/=3V AP/DIANA AP/OTHR RT HISTORY: 18 years Male Acute pain of right shoulder COMPARISON: None RESULT: No acute fracture or dislocation. The glenohumeral joint space is maintained. AC joint is within normal limits. Visualized ribs are intact. Visualized lung is clear. No soft tissue swelling. IMPRESSION: No osseous abnormality identified. Home Health Scheduler: ANDREW Transcribe Date/Time: Jan 18 2024 12:50P Dictated by : YANET CLARK MD This examination was interpreted and the report reviewed and electronically signed by: YANET CLARK MD on Jan 18 2024 12:50PM EST [id number] Normal [facility] XR Shoulder - right 3 Viewso n 01-18-2024 IMPRESSION: No osseous abnormality identified. Home Health Scheduler: PSCB Transcribe Date/Time: Jan 18 2024 12:50P Dictated by : YANET CLARK MD This examination was interpreted and the report reviewed and electronically signed by: YANET CLARK MD on Jan 18 2024 12:50PM EST DIVISION OF RADIOLOGY * * *Final Report* * * DATE OF EXAM: Jan 18 2024 12:38PM WOX 5253 - XR SHLDR >/=3V AP/DIANA AP/OTHR RT / PROCEDURE REASON: Acute pain of right shoulder * * * * Physician Interpretation * * * * TECHNIQUE: XR SHLDR >/=3V AP/DIANA AP/OTHR RT HISTORY: 18 years Male Acute pain of right shoulder COMPARISON: None RESULT: No acute fracture or dislocation. The glenohumeral joint space is maintained. AC joint is within normal limits. Visualized ribs are intact. Visualized lung is clear. No soft tissue swelling. DIVISION OF RADIOLOGY Provider, Saul Chavarria [facility] - 01/18/2024 * * *Final Report* * * DATE OF EXAM: Jan 18 2024 12:38PM WOX 5253 - XR SHLDR >/=3V AP/DIANA AP/OTHR RT / PROCEDURE REASON: Acute pain of right shoulder * * * * Physician Interpretation * * * * TECHNIQUE: XR SHLDR >/=3V AP/DIANA AP/OTHR RT HISTORY: 18 years Male Acute pain of right shoulder COMPARISON: None RESULT: No acute fracture or dislocation. The glenohumeral joint space is maintained. AC joint is within normal limits. Visualized ribs are intact. Visualized lung is clear. No soft tissue swelling. IMPRESSION IMPRESSION: No osseous abnormality identified. Home Health Scheduler: ANDREW Transcribe Date/Time: Jan 18 2024 12:50P Dictated by : YANET CLARK MD This examination was interpreted and the report reviewed and electronically signed by: YANET CLARK MD on Jan 18 2024 12:50PM EST [facility] Radiology Study observation (narrative) [facility] XR Shoulder - right 3 ViewsO rdered By: Cc Provider on 01-18-2024 [facility] Urgent Care Visit Reporton 0 01-11-2024 Urgent Care Visit Report [facility] [address], [address] [place] [address] OFFICE VISIT Date of Service: 01/11/24 MR#: [id number] Acct: [id number] Name: ANTELMO HE Rep #: [id number] : 2005 Provider: DHIRAJ gallego Age/Sex: 18/M Location: [facility] Status: Signed Intake Vital Signs 12/21/23 11:08 01/11/24 08:09 Height 6 ft 2 in 6 ft 2 in Weight: 220 lb 223 lb BMI 28.2 28.6 BP 126/78 123/78 Blood Pressure Location Lt brachial Lt brachial Position Sitting Sitting Respiration 12 Pulse 84 66 Pulse Source Monitor NIBP Temp 98.3 F 98.7 F Temp Source Temporal Temporal Pulse Oximetry (%) 98 Intake Visit Reasons: VOMITING ALL NIGHT Chief Complaint: vomiting Allergies No Known Allergies Allergy (Unverified 12/21/23 11:10) HPI HPI Chief Complaint: vomiting Details: ANTELMO HE, is a 18 M who presents to the office today for concerns regarding vomiting. He was seen in clinic of 12/21/2023 and diagnosed and strep pharyngitis with 10 day course of Amoxicillin. He states his vomiting started yesterday morning. He states this occurred while at work while changing a tire. After his initial episode, he returned to work and it occurred 30 minutes later. This then occurred three times in the middle of night. He states it is food and water mix. He denies obvious blood. He states abdominal pain 10 minutes prior to vomiting. It resolves after vomiting. He states morning temperature today of 101. He states sick contacts and possible COVID-19 exposure. ROS Const Constitutional: Positive for body ache, chills, fatigue, fever(s), headache(s) and change in appetite Eyes Eyes: No blurry vision, change in vision, double vision, irritation, discharge, vision loss, dry eyes, bulging eyes, floaters, visual disturbances, eye pain, Light sensitivity, spots in vision, migue khai vision or other ENT ENT: Positive for nasal congestion, nasal discharge (white), headache(s), neck pain and sore throat; No abnormal hearing, ear or mastoid pain, ear discharge, ear pressure, hearing loss, tinnitus, dizziness/vertigo, balance problems, nosebleed/epistaxis, nose pain, sinus pressure, sinus pain, post nasal drip, facial pain, dental pain, difficulty swallowing, bad breath, hoarseness, lip swelling, mouth lesions, mouth pain, tongue swelling or throat swelling Resp Respiratory: Positive for cough Cough: Yes non-productive; No change in phlegm color, chest congestion, hemoptysis, pain on inspiration, shortness of breath, pain with cough, stridor or wheezing Cardio Cardiology: No chest pain at rest, chest pain with exertion, shortness of breath, dyspnea on exertion or lightheadedness Gastro GI: Positive for abdominal pain, diarrhea, nausea/dyspepsia and vomiting; No change in bowel habits or difficulty swallowing Musc Musculoskeletal: Positive for neck pain; No joint pain Skin Skin: No rash Neuro Neurology: Positive for headache(s); No abnormal hearing or visual disturbances Psych Psychiatric: Positive for change in appetite Endo Endocrine: Positive for fatigue Aller/Imm Allergy/Immunologic: No lip swelling, throat swelling, tongue swelling or wheezing Exam Const General: cooperative, healthy appearing, comfortable and no acute distress Orientation: alert, awake and oriented x3 HENMT Head: normal to inspection and normocephalic Ears: hearing grossly normal bilaterally, external ears normal and TM's normal bilaterally Nose: external nose normal, nares normal and no nasal discharge Face and sinus: normal facial exam and sinuses nontender Mouth: oral mucosae normal, lip normal, tongue normal, oropharynx normal and moist mucous membranes Throat: posterior oropharynx normal, tonsils normal, uvula midline and no postnasal drainage Eyes General: appearance normal, both eyes and all related structures Neck Neck: normal visual inspection and no lymphadenopathy Carotids: normal carotid upstroke Lymphatic: no lymphadenopathy noted Chest Chest palpation inspection: normal inspection of the chest Resp Effort Inspection: normal respiratory effort, able to speak in complete sentences, symmetric chest movement, no cough and no stridor Auscultation: Bilateral: Clear to Auscultation Cardio Rate: other Rhythm: regular rhythm Heart Sounds: S1 normal, S2 normal and no murmurs GI Inspection: normal to inspection Auscultation: normal bowel sounds Palpation: soft Skin General: no rashes or lesions noted Neuro Speech: speech normal Extrem General: normal to inspection and capillary refill normal Coding Level of Care Code Off vis,est,level 3 Diagnoses Vomiting R11.10 Vomiting type: unspecified Assessment and Plan Assessment and Plan (1) Vomiting: Status: Acute Qualifiers: Vomiting type: unspecified Plan: We (more content not included)... Normal [facility] Urgent Care Visit Reporton 0 12-21-2023 Urgent Care Visit Report [facility] [address], [address] [place] [address] OFFICE VISIT Date of Service: 12/21/23 MR#: [id number] Acct: [id number] Name: NERIANTELMO L Rep #: [id number] : 2005 Provider: GREG Haro Age/Sex: 18/M Location: [facility] Status: Signed Intake Vital Signs 12/21/23 11:08 Height 1.88 m Weight: 99.79 kg BMI 28.2 BP 126/78 Blood Pressure Location Lt brachial Position Sitting Pulse 84 Pulse Source Monitor Temp 98.3 F Temp Source Temporal Pulse Oximetry (%) 98 Intake Visit Reasons: SINUS/SORE THROAT Chief Complaint: sore throat Allergies No Known Allergies Allergy (Unverified 12/21/23 11:10) Medications amoxicillin 500 mg capsule 1,000 mg (2 x 500 mg) PO DAILY 10 days #20 caps 12/21/23 [Rx Confirmed 12/21/23] HPI HPI Chief Complaint: sore throat Details: ANTELMO HE, is a 18 M who presents to the office today for sore throat. He has had this for 2 days. He has sore throat and pain with swallowing. No fever/chlils. Occasional cough. His fiance currently is taking abx for strep throat. ROS Const Constitutional: No chills, fatigue or fever(s) ENT ENT: Positive for ear or mastoid pain (right), nasal congestion and sore throat Resp Respiratory: Positive for cough Gastro GI: No diarrhea, nausea/dyspepsia or vomiting Endo Endocrine: No fatigue Exam Const General: cooperative, healthy appearing, comfortable, no acute distress, well developed and well groomed Nutritional Appearance: average body habitus and well nourished Orientation: alert, awake and oriented x3 HENMT Head: normocephalic and atraumatic Ears: hearing grossly normal bilaterally, external ears normal and TM abnormal (BL mild erythema) Throat: uvula midline and abnormal tonsil (2+ with copious exudates) Neck Lymphatic: lymphadenopathy (tender) bilateral anterior cervical Resp Effort Inspection: normal respiratory effort, able to speak in complete sentences, symmetric chest movement and no cough Auscultation: Bilateral: Clear to Auscultation Cardio Rate: regular rate Rhythm: regular rhythm Heart Sounds: no murmurs Coding Level of Care Code Off vis,new,level 3 Diagnoses Strep pharyngitis J02.0 Assessment and Plan Assessment and Plan (1) Strep pharyngitis: Status: Acute Plan: centor criteria 2/4. fiance currently being treated for strep. he has marked exudates on his tonsils which are 2+ BL. start amox x 10 days. no chronic medical issues/medication use. Medications: New amoxicillin 1,000 mg (2 x 500 mg) PO DAILY 10 days 20 caps 0RF 12/21/23 1149 Date Dustin Ignacio Signature: Date (if applicable) CC: Normal [facility] Coronavirus 2019on 1 SARS-CoV-2 (COVID-19) RNA HERLINDA+probe Ql (Unsp spec) Normal Negative for COVID19 (SARS CoV2) by RT-PCR or equival [facility] Comment on above: Result Comment: Nega tive for This test was developed and its performance characteristics determined by [facility]'s [facility] [place]. This test has been authorized by FDA under an Emergency Use Authorization (EUA). This test has been validated in accordance with the FDA's Guidance Document Policy for Diagnostics Testing in Laboratories Certified to Perform High Complexity Testing under CLIA prior to Emergency use Authorization for Coronavirus Disease 2019 during the Public Health Emergency issued on October 20, 2019. Test performed by [facility], [facility] [place], [employer] [place], [place] [address]. COVID19 (SARS This test was developed and its performance characteristics determined by [facility]'s [facility] [place]. This test has been authorized by FDA under an Emergency Use Authorization (EUA). This test has been validated in accordance with the FDA's Guidance Document Policy for Diagnostics Testing in Laboratories Certified to Perform High Complexity Testing under CLIA prior to Emergency use Authorization for Coronavirus Disease 2019 during the Public Health Emergency issued on October 20, 2019. Test performed by [facility], [facility] [place], [facility] [place] [address]. CoV2) by RT-PCR This test was developed and its performance characteristics determined by [facility]. This test has been authorized by [facility] under an Emergency Use Authorization (EUA). This test has been validated in accordance with the FDA's Guidance Document Policy for Diagnostics Testing in Laboratories Certified to Perform High Complexity Testing under CLIA prior to Emergency use Authorization for Coronavirus Disease 2019 during the Public Health Emergency issued on October 20, 2019. Test performed by [facility], [facility], [facility] [place] [address]. or equivalent This test was developed and its performance characteristics determined by [facility]. This test has been authorized by FDA under an Emergency Use Authorization (EUA). This test has been validated in accordance with the FDA's Guidance Document Policy for Diagnostics Testing in Laboratories Certified to Perform High Complexity Testing under CLIA prior to Emergency use Authorization for Coronavirus Disease 2019 during the Public Health Emergency issued on October 20, 2019. Test performed by [facility], [facility], [facility] [place] [address]. ethod. This test was developed and its performance characteristics determined by [facility]. This test has been authorized by FDA under an Emergency Use Authorization (EUA). This test has been validated in accordance with the FDA's Guidance Document Policy for Diagnostics Testing in Laboratories Certified to Perform High Complexity Testing under CLIA prior to Emergency use Authorization for Coronavirus Disease 2019 during the Public Health Emergency issued on October 20, 2019. Test performed by [facility], [facility], [facility] [place] [address]. 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 [facility] Comment on above: Result Comment: Nega tive for This test was developed and its performance characteristics determined by [facility]'s [facility] [place]. This test has been authorized by FDA under an Emergency Use Authorization (EUA). This test has been validated in accordance with the FDA's Guidance Document Policy for Diagnostics Testing in Laboratories Certified to Perform High Complexity Testing under CLIA prior to Emergency use Authorization for Coronavirus Disease 2019 during the Public Health Emergency issued on October 20, 2019. COVID19 (SARS This test was developed and its performance characteristics determined by [facility]'s [facility] [place]. This test has been authorized by FDA under an Emergency Use Authorization (EUA). This test has been validated in accordance with the FDA's Guidance Document Policy for Diagnostics Testing in Laboratories Certified to Perform High Complexity Testing under CLIA prior to Emergency use Authorization for Coronavirus Disease 2019 during the Public Health Emergency issued on October 20, 2019. CoV2) by PCR. This test was developed and its performance characteristics determined by [facility] [place]. This test has been authorized by FDA under an Emergency Use Authorization (EUA). This test has been validated in accordance with the FDA's Guidance Document Policy for Diagnostics Testing in Laboratories Certified to Perform High Complexity Testing under CLIA prior to Emergency use Authorization for Coronavirus Disease 2019 during the Public Health Emergency issued on October 20, 2019. Performed By: #### C OVID #### [facility] Reference [address] [place] [address] Coronavirus 2019on 0 SARS-CoV-2 (COVID-19) RNA HERLINDA+probe Ql (Unsp spec) Normal [facility] Comment on above: Result Comment: Naso pharyngeal Corrected on 06/18 AT 1050: Previously reported as NASAL SWAB Swab Corrected on 06/18 AT 1050: Previously reported as NASAL SWAB Performed By: #### C OVID #### [facility] Reference [address] [place] [address] Vital Signs Date Time Vital Sign Value Performing Clinician Bill beltre 01-18-2024 12:25-0400 Body temperature 97.2 [degF] Candie Athy PA-C Work Phone: [facility] 01-18-2024 12:25-0400 Body weight 101 kg Candie Athy PA-C Work Phone: [facility] 01-18-2024 12:25-0400 Diastolic blood pressure 72 mm[Hg] Candie Athy PA-C Work Phone: [facility] 01-18-2024 12:25-0400 Heart rate 78 /min Candie Athy PA-C Work Phone: [facility] 01-18-2024 12:25-0400 Respiratory rate 16 /min Candie Athy PA-C Work Phone: [facility] 01-18-2024 12:25-0400 SaO2% (BldA) [Mass fraction] 98 % Candie Athy PA-C Work Phone: [facility] 01-18-2024 12:25-0400 Systolic blood pressure 122 mm[Hg] Candie Athy PA-C Work Phone: [facility] Encounters Encounter Date Encounter Type Care Provider Facility Start: 02-18-2025 End: 02-18-2025 Emergency department patient visit JOSE HUI [facility] Start: 10-16-2024 End: 10-16-2024 ambulatory Dustin GARZA Facility:[facility] Start: 07-12-2024 End: 07-12-2024 Emergency department patient visit LISBETH MAURER [facility] Start: 07-10-2024 End: 07-10-2024 ambulatory Dustin GARZA Facility:[facility] Start: 05-02-2024 End: 05-02-2024 Emergency department patient visit KARYN LOCKWOOD [facility] Start: 02-23-2024 End: 02-23-2024 Emergency department patient visit MILO MEMBRENO [facility] Start: 02-09-2024 End: 06-19-2024 Telephone encounter Sandhya Albert [facility] Comment on above: Release Of Medical R ecords (Disc/Report) Start: 01-19-2024 Telephone encounter Candie brunson PA-C Work Phone: [facility] Comment on above: Letter Start: 01-18-2024 End: 01-18-2024 Subsequent hospital visit by physician Xr [facility] [place] Work Phone: Radiology Comment on above: Acute pain of right shoulder [M25.511] Start: 01-18-2024 End: 01-18-2024 ambulatory JESSICA MACK Facility:[facility] Start: 01-18-2024 End: 01-18-2024 Patient encounter procedure Candie Ceja PA-C Work Phone: [facility] Comment on above: Acute pain of right shoulder (Primary Dx) Start: 01-11-2024 End: 01-11-2024 ambulatory Stan Max NP Facility:[facility] Start: 12-21-2023 End: 12-21-2023 ambulatory Dustin GARZA Facility:[facility] Procedures Date Procedure Procedure Detail Performing Clinician Start: 01-18-2024 Radex shoulder compl ete minimum 2 views Candie Ceja PA-C Work Phone: Plan of Treatment Date Care Activity Detail Author Start: 11-24-2030 Urine microalbumin profile DTa P,Tdap,Td Vaccine (7 - Td or Tdap) [facility] Start: 04-22-2024 Covid-19 Vaccine ( season) Covid-19 Vaccine ( season) [facility] Start: 04-22-2024 Covid-19 Vaccine ( season) Covid-19 Vaccine ( season) [facility] Start: 04-22-2024 Influenza vaccination [facility] Start: 12-12-2023 Anxiety Screening Anxiety Screening [facility] Start: 12-12-2023 Depression Screening Depression Scre ening [facility] Start: 12-12-2023 Hepatitis C screening Hepatitis C Sc reening [facility] Start: 12-12-2023 HIV screening HIV Screening [facility] Start: 08-22-2023 Behavioral Health Screening Behavioral Health Screening [facility] Start: 04-22-2023 Covid-19 Vaccine ( season) Covid-19 Vaccine ( season) [facility] Start: 2021 Meningococcal B Vacc ine: Consider Based On Risk (1 of 2 - Patient Seeks Protection) Meningococcal B Vaccine: Consider Based On Risk (1 of 2 - Patient Seeks Protection) [facility] Start: 2021 Meningococcal Conjug ate Vaccine (2 - 2-dose series) Meningococcal Conjugate Vaccine (2 - 2-dose series) [facility] Start: 12-12-2019 Peds To Adult Transi tion Annual Assessment Peds To Adult Transition Annual Assessment [facility] Start: 2017 Peds To Adult Transi tion Initial Discussion Peds To Adult Transition Initial Discussion [facility] Immunizations Immunization Date Immunization Notes Care Provider Cristhian queen 11-24-2020 tuberculin skin test ; purified protein derivative solution, intradermal Xr [facility] Work Phone: [facility] 10-01-2020 Human Papillomavirus 9-valent vaccine Candie Ceja PA-C Work Phone: [facility] 09-02-2020 hepatitis A vaccine, pediatric/adolescent dosage, 2 dose schedule Candie Ceja PA-C Work Phone: [facility] 09-02-2020 measles, mumps, rube lla, and varicella virus vaccine Candie Ceja PA-C Work Phone: [facility] 04-07-2018 hepatitis A vaccine, pediatric/adolescent dosage, 2 dose schedule Candie Ceja PA-C Work Phone: [facility] 04-07-2018 Human Papillomavirus 9-valent vaccine Candie Ceja PA-C Work Phone: [facility] 04-07-2018 meningococcal polysaccharide (groups A, C, Y and W-135) diphtheria toxoid conjugate vaccine (MCV4P) Candie Ceja PA-C Work Phone: [facility] 11-16-2013 measles, mumps, rube lla, and varicella virus vaccine Candie Athy PA-C Work Phone: [facility] 11-16-2013 poliovirus vaccine, inactivated Candie GARZA-C Work Phone: [facility] 11-16-2013 tetanus toxoid, redu palua diphtheria toxoid, and acellular pertussis vaccine, adsorbed Candie Ceja PA-C Work Phone: [facility] 04-24-2009 diphtheria, tetanus toxoids and acellular pertussis vaccine Candie Ceja PA-C Work Phone: [facility] 02-16-2007 DTaP-hepatitis B and poliovirus vaccine Candie Ceja PA-C Work Phone: [facility] 02-16-2007 haemophilus influenz ae type b vaccine, HbOC conjugate Candie Ceja PA-C Work Phone: [facility] 02-16-2007 measles, mumps and rubella virus vaccine Candie Ceja PA-C Work Phone: [facility] 02-16-2007 measles, mumps, rube lla, and varicella virus vaccine Candie Ceja PA-C Work Phone: [facility] 02-16-2007 pneumococcal conjuga te vaccine, 13 valent Candie GARZA-C Work Phone: [facility] 02-16-2007 varicella virus vaccine Candie GARZA-C Work Phone: [facility] 04-14-2006 DTaP-hepatitis B and poliovirus vaccine Candie Ceja PA-C Work Phone: [facility] 04-14-2006 haemophilus influenz ae type b vaccine, HbOC conjugate Candie eCja PA-C Work Phone: [facility] 04-14-2006 pneumococcal conjuga te vaccine, 13 valent Candie Ceja PA-C Work Phone: [facility] 02-07-2006 DTaP-hepatitis B and poliovirus vaccine Candie Ceja PA-C Work Phone: [facility] 02-07-2006 haemophilus influenz ae type b vaccine, HbOC conjugate Cadnie Ceja PA-C Work Phone: [facility] 02-07-2006 pneumococcal conjuga te vaccine, 13 valent Candie Ceja PA-C Work Phone: [facility] 2005 hepatitis B vaccine, pediatric or pediatric/adolescent dosage Candie Ceja PA-C Work Phone: [facility] Payers Date Payer Category [facility]ayer Unknown [id number] 2024-Present [phone] [address] [place] [address] [place] [id number] 2023 Self-pay 2022 Medicaid [place] [employer] [place] [id number] 2022-Present [phone] [address] [place] [address] Medicaid [id number] 2022 Medicaid [id number] 2005 Unknown [id number] 2005 Unknown [id number] 2005 Unknown [id number] 2005 Unknown [id number] Unknown [id number] Unknown [id number] Unknown [id number] Unknown [id number] Social History Date Type Detail Facility [facility] Start: 11-24-2020 History of Social function [facility] Start: 11-24-2020 Area Deprivation Index [facility] National Score (1-10 0), lower number is lower risk Not on file [facility] Start: 2005 Sex Assigned At Not on file [facility] Clinical Notes 01-18-2024 to 07-12-2024 Telephone Encounter - Sandhya Morillo, [facility] - 02/10/2024 8:55 AM EDTTelephone Encounter - Sandhya Morillo, [facility] - 02/10/2024 8:55 AM EDTTelephone Encounter - Pedrito Feliciano - 02/09/2024 3:16 PM EDT Note Date & Type Note Facility 07-12-2024 Note Discharge Instructio ns Discharge Summary [address] [place] [address] [id number] 07/12/2024 Patient: ANTELMO HE Sex: Male : 2005 Age: 18y Thank you for visiting [facility]. You have been evaluated today by Lisbeth Maurer M.D. for the following condition(s): Principal Diagnosis Viral bronchitis. Antibiotics not prescribed / dispensed. Acute viral upper respiratory infection. Antibiotics not prescribed. INSTRUCTIONS Take Tylenol (Acetaminophen) or Motrin (Ibuprofen) as needed for fever control. Take medication according to label instructions. No strenuous activity. Do not smoke. (or vaping). (Medications as directed. wash hands frequently.). Prescription Medications: Medications prescribed: Bromfed DM, albuterol inhaler. Bromfed DM 2 mg-30 mg-10 mg/5 mL oral syrup: Take 5 ml by mouth four times a day for 7 days, dispense 140 ml. Refills 0. Pharmacy: [facility] [id number] [place] [address]. albuterol sulfate HFA 90 mcg/actuation aerosol inhaler: Inhale 2 puff using inhaler every six hours as needed for 10 days, dispense 6.7 gram. Refills 0. Pharmacy: [facility] [id number] [place] [address]. 1 of 11 Discharge Instructions Understanding of the discharge instructions verbalized by patient. 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 [address] [phone] 07/12/2024 Patient: ANTELMO HE Sex: Male : 2005 Age: 18y Thank you for visiting [facility]. You have been evaluated today by Lisbeth Maurer M.D. for the following condition(s): Principal Diagnosis Viral bronchitis. Antibiotics not prescribed / dispensed. Acute viral upper respiratory infection. Antibiotics not prescribed. INSTRUCTIONS Take Tylenol (Acetaminophen) or Motrin (Ibuprofen) as needed for fever control. Take medication according to label instructions. No strenuous activity. Do not smoke. (or vaping). 2 of 11 Discharge Instructions (Medications as directed. wash hands frequently.). Prescription Medications: Medications prescribed: Bromfed DM, albuterol inhaler. Bromfed DM 2 mg-30 mg-10 mg/5 mL oral syrup: Take 5 ml by mouth four times a day for 7 days, dispense 140 ml. Refills 0. Pharmacy: [facility] [id number] [place] [id number]. albuterol sulfate HFA 90 mcg/actuation aerosol inhaler: Inhale 2 puff using inhaler every six hours as needed for 10 days, dispense 6.7 gram. Refills 0. Pharmacy: [facility] [id number] [place] [address]. Understanding of the discharge instructions verbalized by patient. ADDITIONAL INFORMATION 3 of 11 Discharge Instructions Viral Bronchitis (Adult) You have a viral bronchitis. Bronchitis is inflammation and swelling of the lining of the lungs. This is often caused by an infection. Symptoms include a dry, hacking cough that is worse at night. The cough may bring up yellow-green mucus. You may also feel short of breath or wheeze. Other symptoms may include tiredness, chest discomfort, and chills. Bronchitis that is caused by a virus is not treated with antibiotics. Instead, medicines may be given to help relieve symptoms. Symptoms can last up to 2 weeks, although the cough may last much longer. This illness is contagious during the first few days and is spread through the air by coughing and sneezing, or by direct contact (touching the sick person and then touching your own eyes, nose, or mouth). Most viral illnesses resolve within 10 to 14 days with rest and simple home remedies, although they may sometimes last for several weeks. 4 of 11 Discharge Instructions Home care If symptoms are severe, rest at home for the first 2 to 3 days. When you go back to your usual activities, don't let yourself get too tired. Do not smoke. Also avoid being exposed to secondhand smoke. You may use [id number] medicine to control fever or pain, unless another pain medicine was prescribed. If you have chronic liver or kidney disease or have ever had a stomach ulcer or gastrointestinal bleeding, talk with your healthcare provider before using these medicines. Also talk to your provider if you are taking medicine to prevent blood clots. Aspirin should never be given to anyone younger than 18 years of age who is ill with a viral infection or fever. It may cause severe bimal (more content not included)... 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 Please notify spouse when ready for pickup. documented in this encounter [facility] 02-09-2024 Telephone encounter Note Patient's spouse called to request disc and report of XR Shoulder RT from 01/18/24. Please notify spouse when ready for pickup. [facility] 01-19-2024 Telephone encounter Note Patient notified, faxed to work [employer] [phone]. Monserrat Riggs MA [facility] 01-19-2024 Miscellaneous Notes Patient notified, faxed to work [employer] [phone]. Monserrat Riggs MA Please call and let patient know that there is a note saved to his [facility] for today for work. If patient needs any more time off work you have to follow-up with primary care. Patient calls and states that provider had wrote a letter yesterday to excuse patient from work yesterday. Patient states that he did not work yesterday. Patient asking if provider can write him a letter excusing him from work today? Please review and advise, Jolanta Rosa RN documented in this encounter [facility] 01-19-2024 Telephone encounter Note Pt called to get a new letter. He was seen yesterday and a letter was given but pt will return to work tomorrow 01-20-24. He was to be written off today to given meds time to kick in. Please fax letter with pt being off today and return to work 01-20-24. Please fax letter to employer [employer] [phone]. Please advise pt when this has been done or if there is a problem. Maisha Hair LPN [facility] 01-19-2024 Miscellaneous Notes Pt called to get a new letter. He was seen yesterday and a letter was given but pt will return to work tomorrow 01-20-24. He was to be written off today to given meds time to kick in. Please fax letter with pt being off today and return to work 01-20-24. Please fax [facility] [phone]. Please advise pt when this has been done or if there is a problem. Maisha Hair LPN documented in this encounter [facility] 01-19-2024 Telephone encounter Note Please call and let patient know that [facility] is a [facility] work. If patient needs any more time off work you have to follow-up with primary care. [facility] Work Phone: 01-19-2024 Telephone encounter Note Patient calls and states that provider had wrote a letter yesterday to excuse patient from work yesterday. Patient states that he did not work yesterday. Patient asking if provider can write him a letter excusing him from work today? Please review and advise, Jolanta Rosa RN [facility] 01-18-2024 Note HNO ID: [id number] Author: CANDIE CEJA PA-C Service: ? Author Type: Physician Legal Director Type: Progress Notes Filed: 01/18/2024 13:13 Note Text: This note was created using [employer]. Subjective Antelmo He is a 18 year old male. HPI Patient presents with a chief complaint of right shoulder pain. He was trying to get a tire off of his car about 2 hours ago when he felt a pop in the back of his shoulder. Since then it has been painful to move the shoulder. He states he had been told he may have torn a muscle in his upper back about a year ago. It really was not bothering him much since then. He denies numbness or tingling. Sometimes the pain radiates to his mid bicep area. No other complaints. Review of Systems Musculoskeletal: Right shoulder All other systems reviewed and are negative. PAST MEDICAL HISTORY Diagnosis Date Meningitis 8 yo Current Outpatient Medications Medication Sig Dispense Refill naproxen (NAPROSYN) 500 mg tablet Take 1 tablet by mouth two times a day as needed (for pain/inflammation) for up to 7 days. Take with food. 14 tablet 0 fluticasone (FLONASE) 50 mcg/actuation nasal spray Use 1 [place] in each nostril daily at bedtime. (Patient not taking: Reported on 01/18/2024) 1 Bottle 0 topiramate (TOPAMAX) 25 mg tablet Take 1 tablet by mouth once daily. (Patient not taking: Reported on 01/18/2024) 30 tablet 0 cetirizine (ZYRTEC) 10 mg tablet Take 1 tablet by mouth once daily. (Patient not taking: Reported on 01/18/2024) hydrOXYzine HCl (ATARAX) 25 mg tablet Take 1 tablet by mouth daily at bedtime. (Patient not taking: Reported on 01/18/2024) Melatonin 5 mg cap Take 1 capsule by mouth daily at bedtime. (Patient not taking: Reported on 01/18/2024) No current facility-administered medications for this visit. No past surgical history on file. No family history on file. Objective BP 122/72 Pulse 78 Temp 36.2 ?C (97.2 ?F) Resp 16 Wt 101 kg (222 lb 10.6 oz) SpO2 98% Physical Exam Vitals reviewed. Constitutional: Appearance: Normal appearance. HENT: Head: Normocephalic and atraumatic. Musculoskeletal: Comments: Patient has tenderness palpation over the scapula of the right shoulder. Limited range of motion of the shoulder due to pain. No tenderness over the glenohumeral joint. No tenderness over the clavicle. Normal strength in the arm. Radial pulse 2+. Normal hand grasp strength. Skin: General: Skin is warm and dry. Neurological: General: No focal deficit present. Mental Status: He is alert and oriented to person, place, and time. Assessment and Plan ASSESSMENT/PLAN: 1. Acute pain of right shoulder - ICD9: 719.41, ICD10: M25.511 Likely strain. X-rays are unremarkable. Given naproxen for pain. Discussed rest, ice, if not improving in the next 1 to 2 weeks to follow-up with orthopedics. Work note provided. Patient agreeable with plan. - XR SHOULDER GENERAL 3V OR MORE AP/TRUE AP/OTHER RIGHT - CONSULT TO ORTHOPAEDICS Candie Ceja PA-C [facility] 01-18-2024 History of Presen t illness Narrative This note was created using [employer]. Subjective Antelmo He is a 18 year old male. HPI Patient presents with a chief complaint of right shoulder pain. He was trying to get a tire off of his car about 2 hours ago when he felt a pop in the back of his shoulder. Since then it has been painful to move the shoulder. He states he had been told he may have torn a muscle in his upper back about a year ago. It really was not bothering him much since then. He denies numbness or tingling. Sometimes the pain radiates to his mid bicep area. No other complaints. Review of Systems Musculoskeletal: Right shoulder All other systems reviewed and are negative. PAST MEDICAL HISTORY Diagnosis Date Meningitis 8 yo Current Outpatient Medications Medication Sig Dispense Refill naproxen (NAPROSYN) 500 mg tablet Take 1 tablet by mouth two times a day as needed (for pain/inflammation) for up to 7 days. Take with food. 14 tablet 0 fluticasone (FLONASE) 50 mcg/actuation nasal spray Use 1 [place] in each nostril daily at bedtime. (Patient not taking: Reported on 01/18/2024) 1 Bottle 0 topiramate (TOPAMAX) 25 mg tablet Take 1 tablet by mouth once daily. (Patient not taking: Reported on 01/18/2024) 30 tablet 0 cetirizine (ZYRTEC) 10 mg tablet Take 1 tablet by mouth once daily. (Patient not taking: Reported on 01/18/2024) hydrOXYzine HCl (ATARAX) 25 mg tablet Take 1 tablet by mouth daily at bedtime. (Patient not taking: Reported on 01/18/2024) Melatonin 5 mg cap Take 1 capsule by mouth daily at bedtime. (Patient not taking: Reported on 01/18/2024) No current facility-administered medications for this visit. No past surgical history on file. No family history on file. Objective BP 122/72 Pulse 78 Temp 36.2 C (97.2 F) Resp 16 Wt 101 kg (222 lb 10.6 oz) SpO2 98% Physical Exam Vitals reviewed. Constitutional: Appearance: Normal appearance. HENT: Head: Normocephalic and atraumatic. Musculoskeletal: Comments: Patient has tenderness palpation over the scapula of the right shoulder. Limited range of motion of the shoulder due to pain. No tenderness over the glenohumeral joint. No tenderness over the clavicle. Normal strength in the arm. Radial pulse 2+. Normal hand grasp strength. Skin: General: Skin is warm and dry. Neurological: General: No focal deficit present. Mental Status: He is alert and oriented to person, place, and time. Assessment and Plan ASSESSMENT/PLAN: 1. Acute pain of right shoulder - ICD9: 719.41, ICD10: M25.511 Likely strain. X-rays are unremarkable. Given naproxen for pain. Discussed rest, ice, if not improving in the next 1 to 2 weeks to follow-up with orthopedics. Work note provided. Patient agreeable with plan. - XR SHOULDER GENERAL 3V OR MORE AP/TRUE AP/OTHER RIGHT - CONSULT TO ORTHOPAEDICS Candie Ceja PA-C documented in this encounter [facility] 01-18-2024 History of Presen t illness Narrative Radiology Service Progress Note PATIENT NAME: Antelmo He DATE OF SERVICE: January 18, 2024 TIME: 12:32 PM PATIENT IDENTITY VERIFICATION COMPLETED USING TWO (2) IDENTIFIERS: Name and Date of confirmed by patient verbally. FALL SCREENING: Has the patient had 2 falls in the last year or 1 fall with injury or currently using an Ambulatory Assistive Device (Walker, Cane, Wheelchair, Crutches, etc.)? No PATIENT GENDER DATA: Male PATIENT RELEVANT IMPLANT DATA REVIEWED: Not Applicable PATIENT PRESENTS WITH AN IMPLANTABLE OR ATTACHED SEXUAL HEALTH PHYSICIAN: No RADIOLOGY DEPARTMENT: General X-ray: Exam(s) Completed: Upper Extremity X-Ray(s): Shoulder, AP / TRUE AP / SUPRA OUTLET right PERIPHERAL IV DATA: Not applicable SIGNED BY: RT Patience(R) January 18, 2024 12:32 PM documented in this encounter [facility] 01-18-2024 Note HNO ID: [id number] Author: CLARA BURTON RT(R) Service: Radiology Author Type: Technologist Type: Progress Notes Filed: 01/18/2024 12:38 Note Text: Radiology Service Progress Note PATIENT NAME: Antelmo He DATE OF SERVICE: January 18, 2024 TIME: 12:32 PM PATIENT IDENTITY VERIFICATION COMPLETED USING TWO (2) IDENTIFIERS: Name and Date of confirmed by patient verbally. FALL SCREENING: Has the patient had 2 falls in the last year or 1 fall with injury or currently using an Ambulatory Assistive Device (Walker, Cane, Wheelchair, Crutches, etc.)? No PATIENT GENDER DATA: Male PATIENT RELEVANT IMPLANT DATA REVIEWED: Not Applicable PATIENT PRESENTS WITH AN IMPLANTABLE OR ATTACHED SEXUAL HEALTH PHYSICIAN: No RADIOLOGY DEPARTMENT: General X-ray: Exam(s) Completed: Upper Extremity X-Ray(s): Shoulder, AP / TRUE AP / SUPRA OUTLET right PERIPHERAL IV DATA: Not applicable SIGNED BY: RT Patience(Ankush) January 18, 2024 12:32 PM [facility] Evaluation note Diagnosis Acute pain of right shoulder- Primary Acute pain of right shoulder [facility] Acute pain of right shoulder [facility] Diagnostic Procedure Only (Urgent) - Closed Specialty Diagnoses / Procedures Referred By Rosmery zazueta Referred To Contact XR IMAGING Diagnoses Acute pain of right shoulder Procedures XR SHOULDER GENERAL 3V OR MORE AP/TRUE AP/OTHER RIGHT RADEX SHOULDER COMPLETE MINIMUM 2 VIEWS Candie Ceja PA-C [address] [place] [address] [place] [address] Referral ID Status Reason Start Date Expiration Date V isits Requested Visits Authorized [id number] Closed Auto-Generate d Referral 01/18/2024 02/16/2025 1 1 [facility] for visit Narrative* Diagnostic Procedure Only (Urgent) - Closed Specialty Diagnoses / Procedures Referred By Contac t Referred To Contact XR IMAGING Diagnoses Acute pain of right shoulder Procedures XR SHOULDER GENERAL 3V OR MORE AP/TRUE AP/OTHER RIGHT RADEX SHOULDER COMPLETE MINIMUM 2 VIEWS Candie Ceja PA-C [address] [place] [address] [place] [address] Referral ID Status Reason Start Date Expiration Date V isits Requested Visits Authorized [id number] Closed Auto-Generate d Referral 01/18/2024 02/16/2025 1 1 [facility] Summary Purpose Family History No Family History Records FoundNo Family History Records FoundNo Family History Records FoundNo Family History Records Found Advance Directives No Advanced Directives Records FoundNo Advanced Directives Records FoundNo Advanced Directives Records FoundNo Advanced Directives Records Found Reason for Referral Specialty Diagnoses / Procedures Referred By Contac t Referred To Contact Orthopedics Diagnoses Acute pain of right shoulder Procedures CONSULT TO ORTHOPAEDICS OFFICE/OUTPATIENT [facility] 60 MINUTES Candie Ceja PA-C [address] [place] [address] Referral ID Status Reason Start Date Expiration Date Visits Requested Visits Authorized [id number] Authorized PCP Requested Referral 01/18/2024 01/17/2025 1 1 Specialty Diagnoses / Procedures Referred By Contac t Referred To Contact XR IMAGING Diagnoses Acute pain of right shoulder Procedures XR SHOULDER GENERAL 3V OR MORE AP/TRUE AP/OTHER RIGHT RADEX SHOULDER COMPLETE MINIMUM 2 VIEWS Candie Ceja PA-C [address] [place] [address] [place] [address] Referral ID Status Reason Start Date Expiration Date V isits Requested Visits Authorized [id number] Closed Auto-Generate d Referral 01/18/2024 02/16/2025 1 1 Additional Source Comments (unrecognized sect ion and content) No Status Records FoundNo Status Records FoundNo Status Records FoundNo Status Records Found INFORMATION SOURCE (unrecogn ized section and content) DATE CREATED AUTHOR 05/03/2021 [facility] DATE CREATED AUTHOR AUTHOR'S ORGANIZ ATION 06/20/2024 [facility] DATE CREATED AUTHOR AUTHOR'S ORGANIZ ATION 10/18/2024 [facility] DATE CREATED AUTHOR AUTHOR'S ORGANIZ ATION 02/21/2025 [facility] Source Comments (unrecognize d section and content) In the event this informatio n is protected by the Federal Confidentiality of Alcohol and Drug Abuse Patient Records regulations: The Federal rules restrict any use of the information to criminally investigate or prosecute any alcohol or drug abuse patient.[facility] the event this information is protected by the Federal Confidentiality of Alcohol and Drug Abuse Patient Records regulations: The Federal rules restrict any use of the information to criminally investigate or prosecute any alcohol or drug abuse patient.[facility] the event this information is protected by the Federal Confidentiality of Alcohol and Drug Abuse Patient Records regulations: The Federal rules restrict any use of the information to criminally investigate or prosecute any alcohol or drug abuse patient.[facility] the event this information is protected by the Federal Confidentiality of Alcohol and Drug Abuse Patient Records regulations: The Federal rules restrict any use of the information to criminally investigate or prosecute any alcohol or drug abuse patient.[facility] the event this information is protected by the Federal Confidentiality of Alcohol and Drug Abuse Patient Records regulations: The Federal rules restrict any use of the information to criminally investigate or prosecute any alcohol or drug abuse patient.[facility] Reason for Visit (unrecogniz ed section and content) Reason Comments Shoulder Injury right shoulder pop x 2 hours, while working on car Reason Comments Letter Reason Comments Release Of Medical Records Disc/Report Care Teams (unrecognized sec tion and content) Mosquito Sprayer Relationship Specialty Start Date End Date Jessica Mack CNP [address] [place] [address] PCP - General Family Medicine 11/24/20 Mosquito Sprayer Relationship Specialty Start Date End Date Jessica Mack CNP [address] [place] [address] PCP - General Family Medicine 11/24/20 Mosquito Sprayer Relationship Specialty Start Date End Date Jessica MackCHACHA [address] [place] [address] PCP - General Family Medicine 11/24/20 Mosquito Sprayer Relationship Specialty Start Date End Date Jessica MackCHACHA [address] [place] [address] PCP - General Family Medicine 11/24/20 FOR RECORDS PERTAINING TO PATIENTS WHO ARE OR HAVE BEEN ENROLLED IN A CHEMICAL DEPENDENCY/SUBSTANCEABUSE PROGRAM, SOME INFORMATION MAY BE OMITTED. This clinical summary was aggregated from multiple sources. Caution should be exercised in using it in the provision of clinical care. This summary normalizes information from multiple sources, and as a consequence, information in this document may materially change the coding, format and clinical context of patient data. In addition, data may be omitted in some cases. CLINICAL DECISIONS SHOULD BE BASED ON THE PRIMARY CLINICAL RECORDS. [employer] provides no warranty or guarantee of the accuracy or completeness of information in this document.
[2025-08-16 16:13] VITALS: BP 122/79; PULSE 84; RESP 16; TEMP 36.8; O2SAT 100; BMI 32.3
== END 2025-08-16 16:16 | disposition home or self-care (01) ==
PROVIDERS: Emergency Provider Emergency Medicine; Visit Provider Emergency Medicine
DX: G51.0 Bell's palsy (principal); R03.0 Elevated blood-pressure reading, without diagnosis of hypertension
CPT/HCPCS: 99282